=== PATIENT | male | born 1995 | race African-American/Black ===

== ENCOUNTER 2016-09-17 13:28 | Emergency (ER) | payer SELFPAY ==
--- NOTE | 2016-09-17 14:07 | ER Document Report ---
HPI - HPI Patient complains to provider of: Sore throat Onset: Other - Last night Onset/Duration: Gradual Pain Level: 5 Context: 21-year-old male complaining of sore throat that started last night. It hurts to swallow. No fever or chills. No rash. No runny nose or cough. Associated Symptoms: None Exacerbated by: Other - swallowing Relieved by: Denies Similar symptoms previously: Yes Recently seen / treated by doctor: No - ROS ROS below otherwise negative: Yes Systems Reviewed and Negative: Yes All other systems reviewed and negative - DERM Skin Color: Normal Past Medical History - General Information source: Patient - Social History Smoking Status: Current Every Day Smoker Frequency of alcohol use: Occasional Drug Abuse: None Occupation: food service sales representatives Lives with: Family Family History: Reviewed & Not Pertinent - Medical History Medical History: Negative Renal/ Medical History: Denies: Hx Peritoneal Dialysis Surgical Hx: Negative Vertical Provider Document - CONSTITUTIONAL Agree With Documented VS: Yes Exam Limitations: No Limitations - INFECTION CONTROL TRAVEL OUTSIDE OF THE [place] IN LAST 30 DAYS: No - HEENT HEENT: Normocephalic, PERRLA, Pharyngeal Erythema. negative: Pharyngeal Exudate , Tympanic Membrane Red - NECK Neck: Supple, Lymphadenopathy-Left - Anterior, Lymphadenopathy-Right - Anterior - RESPIRATORY Respiratory: Breath Sounds Normal, No Respiratory Distress O2 Sat by Pulse Oximetry: 96 - CARDIOVASCULAR Cardiovascular: Regular Rate, Regular Rhythm - GI/ABDOMEN Gastrointestinal: Abdomen Soft, Abdomen Non-Tender, No Organomegaly - MUSCULOSKELETAL/EXTREMETIES Musculoskeletal/Extremeties: MAEW, FROM - NEURO Level of Consciousness: Awake, Alert, Appropriate - DERM Integumentary: Warm, Dry, No Rash Course - Vital Signs Vital signs: Temp Pulse Resp BP Pulse Ox 97.6 F 66 18 144/74 H 96 09/17/16 13:36 09/17/16 13:36 09/17/16 13:36 09/17/16 13:36 09/17/16 13:36 Discharge - Discharge Clinical Impression: Sore throat Condition: Good Disposition: HOME, SELF-CARE Instructions: Sore Throat ([facility]), Penicillin V K ([facility]), Anti-Inflammatory Medication ([facility]), Acetaminophen Additional Instructions: chloraseptic spray for for throat tylenol and motrin for pain drink plenty of fluids to er if worse Please complete the patient satisfaction survey if you get one, and return it.. If you do not receive a survey, then you can go to the [facility] website, [email or web address] and place your comments about your very good care. Thank you very much. It was a pleasure being your medical provider today. Prescriptions: Ibuprofen [Motrin 800 mg Tablet] 800 mg PO Q8HP PRN #30 tablet PRN Reason: Penicillin V Potassium [Penicillin Vk 500 mg Tablet] 500 mg PO QID #40 tablet Forms: Return to Work
[2016-09-17 15:01] VITALS: BP 140/70
== END 2016-09-17 15:01 | disposition home or self-care (01) ==
LOC: ER 13:28
DX: J02.9 Acute pharyngitis, unspecified (principal); R59.0 Localized enlarged lymph nodes; F17.200 Nicotine dependence, unspecified, uncomplicated
CPT/HCPCS: 99282

== ENCOUNTER 2016-10-17 05:54 | Emergency (ER) | payer SELFPAY ==
[2016-10-17] MEDS ORDERED: ONDANSETRON 4 MG TAB.RAPDIS PO ONE (06:56)
--- NOTE | 2016-10-17 06:56 | ER Document Report ---
ED GI/ - General Mode of Arrival: Ambulatory Information source: Patient TRAVEL OUTSIDE OF THE [place] IN LAST 30 DAYS: No - HPI Patient complains to provider of: Diarrhea, Vomiting. No: Abdominal pain Quality of pain: No pain Associated symptoms: Other - see above - General Chief Complaint: Nausea/Vomiting Stated Complaint: NAUSEA,VOMITING Time Seen by Provider: 10/17/16 06:44 Notes: Patient is a 21 year old male who presents to the ED with complaints of nausea. Patient states he had a frontal headache all day yesterday and last night. Patient also ate taco ramirez for dinner last night. He states he woke up at 0400 , his regular time to go to work and had vomiting x2 and some diarrhea. Patient denies any abdominal pain but states he is still nauseous. Patient also has a cough and some congestion. (MATIAS SHAIKH) - Related Data Allergies/Adverse Reactions: No Known Allergies Allergy (Verified 09/17/16 13:38) Home Medications: Current Home Medications No Home Medications 10/17/16 [History] Past Medical History - General Information source: Patient - Social History Smoking Status: Current Every Day Smoker - minimal Frequency of alcohol use: Occasional Family History: Reviewed & Not Pertinent Patient has suicidal ideation: No Patient has homicidal ideation: No Renal/ Medical History: Denies: Hx Peritoneal Dialysis Review of Systems - Review of Systems Constitutional: No symptoms reported EENT: See HPI, Nose congestion Cardiovascular: No symptoms reported Respiratory: See HPI, Cough Gastrointestinal: See HPI, Diarrhea, Nausea, Vomiting. denies: Abdominal pain Genitourinary: No symptoms reported Male Genitourinary: No symptoms reported Musculoskeletal: No symptoms reported Skin: No symptoms reported Hematologic/Lymphatic: No symptoms reported Neurological/Psychological: No symptoms reported Physical Exam - General General appearance: Appears well, Alert In distress: None - HEENT Head: Normocephalic, Other - middle of scalp along hair line is tender to palpation Eyes: Normal Extraocular movements intact: Yes Pupils: PERRL Sinus: Normal, Maxillary. No: Tenderness - to include to maxially sinus tenderness Pharynx: Erythema Neck: Normal, Other - no posterior cervical muscle tenderness or spasm, can touch chin to chest without difficulty - Respiratory Respiratory status: No respiratory distress Breath sounds: Normal - Cardiovascular Rhythm: Regular Heart sounds: Normal auscultation Murmur: No - Abdominal Inspection: Normal Distension: No distension Bowel sounds: Normal Tenderness: Nontender - Back Back: Normal - Extremities General upper extremity: Normal inspection, Normal ROM General lower extremity: Normal inspection, Normal ROM - Neurological Neuro grossly intact: Yes - Psychological Associated symptoms: Normal affect, Normal mood - Skin Skin Temperature: Warm Skin Moisture: Dry Skin Color: Normal - Vital signs Vitals: Temp Pulse Resp BP Pulse Ox 97.4 F 59 L 16 140/70 H 94 10/17/16 05:58 10/17/16 05:58 10/17/16 05:58 10/17/16 05:58 10/17/16 05:58 Course - Re-evaluation Re-evalutation: 10/17/16 08:50 Patient is feeling some better. He continues to have tenderness to palpate the upper midline forehead. He continues to have some nasal and sinus congestion. ( SARA DÍAZ) - Vital Signs Vital signs: Temp Pulse Resp BP Pulse Ox 97.4 F 59 L 16 140/70 H 94 10/17/16 05:58 10/17/16 05:58 10/17/16 05:58 10/17/16 05:58 10/17/16 05:58 Discharge - Discharge Clinical Impression: Tension headache, Sinus congestion Nausea and vomiting Qualifiers: Vomiting type: unspecified Vomiting Intractability: non-intractable Qualified Code(s): R11.2 - Nausea with vomiting, unspecified Condition: Stable Disposition: HOME, SELF-CARE Additional Instructions: Viral Syndrome The physician has diagnosed a viral infection. Viruses not only cause "colds," but can cause many different symptoms including generalized aching, fever, headache, cough, diarrhea, nausea, vomiting, and fatigue. The treatment, for the most part, is simply relief of symptoms. This means that antibiotics are usually not given. Rest, fluids, pain medications and, occasionally, medication for the specific symptoms that are most bothersome will be prescribed. Use good handwashing to avoid passing the virus to others. Shared toys should be cleaned with disinfectant. Clean the toilets, sinks, and counter surfaces in bathrooms. Launder clothing in hot water. Contact the physician if you develop any new or unusual symptoms such as severe headache, stiff neck, high fever, chest pain, productive cough, or shortness of breath. You should be rechecked if you don't see marked improvement within seven to 10 days. TAKE TYLENOL AND MOTRIN FOR HEADACHE. DRINK PLENTY OF COOL CLEAR LIQUIDS. REST. FOLLOW UP WITH A LOCAL MEDICAL DOCTOR IF NOT IMPROVING. RETURN TO THE EMERGENCY ROOM IF ANY NEW OR WORSENING SYMPTOMS. Forms: Return to Work Scribe Attestation: 10/17/16 07:11 I personally performed the services described in the documentation, reviewed and edited the documentation which was dictated to the scribe in my presence, and it accurately records my words and actions. (SARA DÍAZ) Scribe Documentation - Scribe Written by Win:: win Mark, 10/17/2016, 0702 acting as scribe for :: Alley
[2016-10-17] MEDS ORDERED: DIPHENHYDRAMINE HCL 25 MG CAPSULE PO ONE (06:57)
[2016-10-17] MEDS ORDERED: IBUPROFEN 800 MG TABLET PO ONE (06:57)
[2016-10-17] MEDS ORDERED: PROCHLORPERAZINE MALEATE 10 MG TABLET PO ONE (06:57)
[2016-10-17] MEDS ORDERED: ONDANSETRON ODT 4 MG TAB (6 TAB/DSPK) PO PRN (08:53)
[2016-10-17 09:28] VITALS: BP 125/75
== END 2016-10-17 09:28 | disposition home or self-care (01) ==
LOC: ER 05:54
DX: R11.2 Nausea with vomiting, unspecified (principal); G44.209 Tension-type headache, unspecified, not intractable; R09.81 Nasal congestion; R19.7 Diarrhea, unspecified; R05 Cough; F17.200 Nicotine dependence, unspecified, uncomplicated
CPT/HCPCS: 99283; S0119; S0183

== ENCOUNTER 2016-11-19 06:40 | Emergency (ER) | payer SELFPAY ==
[2016-11-19 06:47] VITALS: BP 148/78
[2016-11-19] MEDS ORDERED: ONDANSETRON 4 MG TAB.RAPDIS PO ONE (07:21)
--- NOTE | 2016-11-19 07:33 | ER Document Report ---
HPI - HPI Patient complains to provider of: vomiting Onset: This morning Onset/Duration: Gradual Quality of pain: No pain Pain Level: Denies Context: Patient presents complaining of nausea and vomiting that started this morning. Patient states he has vomited 2 times. Patient does report recent sick contacts with similar symptoms. Patient denies any diarrhea. Patient denies abdominal pain. Associated Symptoms: Nausea, Vomiting. denies: Chest pain, Nonproductive cough , Productive cough, Fever Exacerbated by: Denies Relieved by: Denies Similar symptoms previously: Yes Recently seen / treated by doctor: No - ROS ROS below otherwise negative: Yes Systems Reviewed and Negative: Yes All other systems reviewed and negative - CONSTITUTIONAL Constitutional: DENIES: Fever, Chills - EENT EENT: DENIES: Sore Throat - RESPIRATORY Respiratory: DENIES: Coughing - GASTROINTESTINAL Gastrointestinal: REPORTS: Nausea, Patient vomiting. DENIES: Abdominal Pain, Diarrhea - URINARY Urinary: DENIES: Dysuria - MUSCULOSKELETAL Musculoskeletal: DENIES: Extremity pain, Back Pain - DERM Skin Color: Normal Skin Problems: None Past Medical History - General Information source: Patient - Social History Smoking Status: Current Every Day Smoker Frequency of alcohol use: None Drug Abuse: None Occupation: food cooking machine operator Family History: Reviewed & Not Pertinent Patient has suicidal ideation: No Patient has homicidal ideation: No - Medical History Medical History: Negative Renal/ Medical History: Denies: Hx Peritoneal Dialysis Surgical Hx: Negative Vertical Provider Document - CONSTITUTIONAL Agree With Documented VS: Yes Exam Limitations: No Limitations General Appearance: WD/WN, No Apparent Distress - INFECTION CONTROL TRAVEL OUTSIDE OF THE [place] IN LAST 30 DAYS: No - HEENT HEENT: Atraumatic, Normal ENT Exam - NECK Neck: Normal Inspection, Supple. negative: Lymphadenopathy-Left, Lymphadenopathy-Right - RESPIRATORY Respiratory: Breath Sounds Normal, No Respiratory Distress, Chest Non-Tender O2 Sat by Pulse Oximetry: 95 - CARDIOVASCULAR Cardiovascular: Regular Rate, Regular Rhythm, No Murmur - GI/ABDOMEN Gastrointestinal: Abdomen Soft, Abdomen Non-Tender, No Organomegaly, Normal Bowel Sounds - BACK Back: Normal Inspection. negative: CVA Tenderness-Right, CVA Tenderness-Left - MUSCULOSKELETAL/EXTREMETIES Musculoskeletal/Extremeties: MAEW, FROM - NEURO Level of Consciousness: Awake, Alert, Appropriate Motor/Sensory: No Motor Deficit - DERM Integumentary: Warm, Dry, No Rash Course - Re-evaluation Re-evalutation: 11/19/16 08:21 Patient able to tolerate oral fluids. Patient states that nausea has improved. Patient continues to deny any abdominal tenderness at this time. 11/19/16 08:22 The patient has been informed that they may have pre-hypertension or hypertension based on a blood pressure reading in the emergency department. I recommend that patient call the primary care provider listed on their discharge instructions or a physician of their choice by this week to arrange follow-up for further evaluation of possible pre-hypertension or hypertension. - Vital Signs Vital signs: Temp Pulse Resp BP Pulse Ox 97.7 F 73 16 148/78 H 95 11/19/16 06:45 11/19/16 06:45 11/19/16 06:45 11/19/16 06:45 11/19/16 06:45 Discharge - Discharge Clinical Impression: Elevated blood pressure reading Nausea & vomiting Qualifiers: Vomiting type: unspecified Vomiting Intractability: non-intractable Qualified Code(s): R11.2 - Nausea with vomiting, unspecified Condition: Stable Disposition: HOME, SELF-CARE Instructions: Antinausea Medication ([facility]), Nausea or Vomiting, Nonspecific ([facility] ) Additional Instructions: Return immediately for any new or worsening symptoms Followup with your primary care provider, call tomorrow to make a followup appointment Prescriptions: Promethazine HCl [Phenergan 25 mg Tablet] 25 mg PO Q6H PRN #10 tablet PRN Reason: Forms: Elevated Blood Pressure, Return to Work Referrals: [facility] [Provider Group] - Follow up as needed
== END 2016-11-19 09:04 | disposition home or self-care (01) ==
LOC: ER 06:40
DX: R03.0 Elevated blood-pressure reading, without diagnosis of hypertension (principal); R11.2 Nausea with vomiting, unspecified; F17.200 Nicotine dependence, unspecified, uncomplicated
CPT/HCPCS: 99283; S0119

== ENCOUNTER 2016-12-13 16:09 | Emergency (ER) | payer BC ==
[2016-12-13] MEDS ORDERED: CEFTRIAXONE INJ 250 MG VIAL IM ONE (17:06)
[2016-12-13] MEDS ORDERED: LIDOCAINE 1% INJ-PF (10 MG/ML) 30 ML SDV INJ ONE (17:06)
[2016-12-13] MEDS ORDERED: AZITHROMYCIN 250 MG TABLET PO ONE (17:06)
--- NOTE | 2016-12-13 17:47 | ER Document Report ---
ED GI/ - General Chief Complaint: Urinary Problem Stated Complaint: URINARY SYMPTOMS Time Seen by Provider: 12/13/16 16:54 Mode of Arrival: Ambulatory Information source: Patient Notes: 21-year-old male presents to ED for complaint of pain and burning with urination. He states the pain and burning started on Friday. He states his girlfriend told him that he she was positive for chlamydia. He denies any penile discharge. He denies any other complaints. TRAVEL OUTSIDE OF THE [place] IN LAST 30 DAYS: No - HPI Patient complains to provider of: Other - Pain and burning with urination Onset: Other - Friday Timing/Duration: Gradual Quality of pain: Burning Severity at maximum: Moderate Severity in ED: Moderate Pain Level: 2 Location: Other - Burning with urination Associated symptoms: Urinary frequency, Urinary urgency, Other - Burning with urination. denies: Penile discharge Exacerbated by: Other Relieved by: Denies - Urination Similar symptoms previously: No Recently seen / treated by doctor: No - Related Data Allergies/Adverse Reactions: No Known Allergies Allergy (Verified 12/13/16 16:24) Past Medical History - General Information source: Patient - Social History Smoking Status: Current Every Day Smoker Cigarette use (# per day): Yes - 3-4 cig a day Chew tobacco use (# tins/day): No Smoking Education Provided: Yes - less than 1 min Frequency of alcohol use: Social Drug Abuse: None Occupation: Maintenance Lives with: Spouse/Significant other Family History: Reviewed & Not Pertinent Patient has suicidal ideation: No Patient has homicidal ideation: No - Past Medical History Cardiac Medical History: Reports: None Pulmonary Medical History: Reports: None EENT Medical History: Reports: None Neurological Medical History: Reports: None Endocrine Medical History: Reports: None Renal/ Medical History: Reports: None Malignancy Medical History: Reports None GI Medical History: Reports: None Musculoskeltal Medical History: Reports None Skin Medical History: Reports None Psychiatric Medical History: Reports: None Traumatic Medical History: Reports: None Infectious Medical History: Reports: None Surgical Hx: Negative - Immunizations Immunizations up to date: Yes Hx Diphtheria, Pertussis, Tetanus Vaccination: Yes Review of Systems - Review of Systems Constitutional: No symptoms reported EENT: No symptoms reported Cardiovascular: No symptoms reported Respiratory: No symptoms reported Gastrointestinal: No symptoms reported Genitourinary: Burning, Frequency Male Genitourinary: No symptoms reported Musculoskeletal: No symptoms reported Skin: No symptoms reported Hematologic/Lymphatic: No symptoms reported Neurological/Psychological: No symptoms reported Physical Exam - Vital signs Vitals: Temp Pulse Resp BP Pulse Ox 98.3 F 96 16 150/94 H 98 12/13/16 16:24 12/13/16 16:24 12/13/16 16:24 12/13/16 16:24 12/13/16 16:24 Interpretation: Normal - General General appearance: Appears well, Alert - HEENT Head: Normocephalic, Atraumatic Eyes: Normal Pupils: PERRL - Respiratory Respiratory status: No respiratory distress Chest status: Nontender Breath sounds: Normal Chest palpation: Normal - Cardiovascular Rhythm: Regular Heart sounds: Normal auscultation Murmur: No - Abdominal Inspection: Normal Distension: No distension Bowel sounds: Normal Tenderness: Nontender Organomegaly: No organomegaly - Back Back: Normal, Nontender - Extremities General upper extremity: Normal inspection, Nontender, Normal color, Normal ROM , Normal temperature General lower extremity: Normal inspection, Nontender, Normal color, Normal ROM , Normal temperature, Normal weight bearing. No: Margret's sign - Neurological Neuro grossly intact: Yes Cognition: Normal Orientation: AAOx4 Irineo Coma Scale Eye Opening: Spontaneous Irineo Coma Scale Verbal: Oriented [place] Coma Scale Motor: Obeys Commands Irineo Coma Scale Total: 15 Speech: Normal Motor strength normal: LUE, RUE, LLE, RLE Sensory: Normal - Psychological Associated symptoms: Normal affect, Normal mood - Skin Skin Temperature: Warm Skin Moisture: Dry Skin Color: Normal Course - Vital Signs Vital signs: Temp Pulse Resp BP Pulse Ox 97.4 F 86 16 140/78 H 90 L 12/13/16 18:28 12/13/16 18:28 12/13/16 18:28 12/13/16 18:28 12/13/16 18:28 Discharge - Discharge Clinical Impression: Concern about STD in male without diagnosis, Urethritis Condition: Stable Disposition: HOME, SELF-CARE Instructions: Family Physicians / Practices Additional Instructions: Urethritis You have urethritis, an infection of the urethra. The usual symptoms are pain on urination and discharge. The infection is often caused by gonorrhea or chlamydia. Treatment is antibiotics. In addition, any sexual contacts should be evaluated by a physician as soon as possible. As this infection can be transmitted sexually, refrain from sexual activity until the infection is confirmed as healed by your physician. If gonorrhea or chlamydia is found on culture, the health department must be notified. Call the doctor at once if you develop difficulty passing your urine, high fever, rash, joint swelling, or other new symptoms. CEPHALOSPORINS: An antibiotic of the cephalosporin class has been prescribed. This type of antibiotic covers a wide variety of infections, including those of the skin, lungs, middle ear, and urinary tract. This antibiotic is somewhat similar to the penicillin family. In rare cases , a person who is allergic to penicillin will also be allergic to this medication. If you have had a severe allergic reaction to penicillin, and have not taken this antibiotic since that time, notify your doctor. Antibiotics which cover many germs ("broad spectrum" antibiotics) are more likely to cause diarrhea or "yeast" infections. Women prone to vaginal yeast problems may suffer an attack after taking this antibiotic. In infants, oral thrush (white spots "stuck" on the cheek) or yeast diaper rash may result. See your doctor if these problems occur. Call the doctor at once if you develop hives, itching, shortness of breath , or lightheadedness. AZITHROMYCIN: Azithromycin (Zithromax) is a broad spectrum antibiotic in the same class as erythromycin. It can treat a variety of bacterial infections, but is most frequently used for respiratory infections. Azithromycin is extremely long-lasting. It accumulates in body tissues and continues to kill bacteria for many days. In order to improve absorption, Azithromycin should be taken at least one hour before or two hours after a meal. It does not have the same strong tendency to upset the stomach as erythromycin and is usually very well tolerated. Patients who have had a rash or other true allergic reactions to erythromycin should not take this medication. Call if you develop gastrointestinal distress, severe diarrhea, rash, hives, itching, or shortness of breath. FOLLOW-UP CARE: If you have been referred to a physician for follow-up care, call the physician s office for an appointment as you were instructed or within the next two days. If you experience worsening or a significant change in your symptoms, notify the physician immediately or return to the Emergency Department at any time for re-evaluation. Forms: Elevated Blood Pressure, Smoking Cessation Education, Return to Work
[2016-12-13 17:50] LABS: AMORPHOUS SEDIMENT,URINE TRACE /HPF; APPEARANCE,URINE CLOUDY; BILIRUBIN,URINE NEGATIVE (NEGATIVE); GLUCOSE, URINE NEGATIVE (NEGATIVE); KETONES,URINE NEGATIVE (NEGATIVE); LEUKOCYTE ESTERASE,URINE NEGATIVE (NEGATIVE); NITRITE,URINE NEGATIVE (NEGATIVE); PROTEIN,URINE NEGATIVE (NEGATIVE); URINE SPECIFIC GRAVITY 1.021; UROBILINOGEN,URINE NEGATIVE mg/dL (<2.0)
[2016-12-13 18:29] VITALS: BP 140/78
[2016-12-13 19:15] LABS: CHLAM PCR NOT DETECTED (NOT DETECT)
== END 2016-12-13 18:25 | disposition home or self-care (01) ==
LOC: ER 16:09
DX: N34.2 Other urethritis (principal); Z20.2 Contact with and (suspected) exposure to infections with a predominantly sexual mode of transmission; R30.0 Dysuria; R35.0 Frequency of micturition; F17.210 Nicotine dependence, cigarettes, uncomplicated
CPT/HCPCS: 99283; 96372; 81001; 87491; 87591; J3490; J0696

== ENCOUNTER 2016-12-30 05:30 | Emergency (ER) | payer BC ==
[2016-12-30 05:36] VITALS: BP 136/77
[2016-12-30] MEDS ORDERED: IBUPROFEN 800 MG TABLET PO ONE (05:48)
[2016-12-30] MEDS ORDERED: PSEUDOEPHEDRINE HCL 30 MG TABLET PO ONE (05:48)
--- NOTE | 2016-12-30 05:50 | ER Document Report ---
HPI - HPI Patient complains to provider of: sore throat Onset: Yesterday Onset/Duration: Gradual Quality of pain: Achy Pain Level: 4 Context: Patient presents complaining of sore throat with sinus congestion started yesterday. Patient denies any fever. Patient does report recent sick household contacts. Patient reports only mild cough. Associated Symptoms: Rhinnorhea, Sore throat. denies: Earache, Fever, Headache Exacerbated by: Denies Relieved by: Denies Similar symptoms previously: No Recently seen / treated by doctor: No - ROS ROS below otherwise negative: Yes Systems Reviewed and Negative: Yes All other systems reviewed and negative - CONSTITUTIONAL Constitutional: DENIES: Fever, Chills - EENT EENT: REPORTS: Sore Throat, Nasal Drainage-Clear, Congestion - RESPIRATORY Respiratory: REPORTS: Coughing - GASTROINTESTINAL Gastrointestinal: DENIES: Nausea, Patient vomiting, Diarrhea - MUSCULOSKELETAL Musculoskeletal: DENIES: Neck Pain - DERM Skin Color: Normal Skin Problems: None Past Medical History - General Information source: Patient - Social History Smoking Status: Current Every Day Smoker Frequency of alcohol use: None Drug Abuse: None Occupation: banquet food server Lives with: Family Family History: Reviewed & Not Pertinent Patient has suicidal ideation: No Patient has homicidal ideation: No - Medical History Medical History: Negative Renal/ Medical History: Denies: Hx Peritoneal Dialysis Surgical Hx: Negative - Immunizations Immunizations up to date: Yes Hx Diphtheria, Pertussis, Tetanus Vaccination: Yes Vertical Provider Document - CONSTITUTIONAL Agree With Documented VS: Yes Exam Limitations: No Limitations General Appearance: WD/WN, No Apparent Distress - INFECTION CONTROL TRAVEL OUTSIDE OF THE [place] IN LAST 30 DAYS: No - HEENT HEENT: Atraumatic, Normocephalic, Pharyngeal Tenderness. negative: Pharyngeal Exudate Notes: clear rhinorrhea, +nasal congestion - NECK Neck: Lymphadenopathy-Left, Lymphadenopathy-Right - RESPIRATORY Respiratory: Breath Sounds Normal, No Respiratory Distress, Chest Non-Tender O2 Sat by Pulse Oximetry: 98 - CARDIOVASCULAR Cardiovascular: Regular Rate, Regular Rhythm, No Murmur - BACK Back: Normal Inspection - MUSCULOSKELETAL/EXTREMETIES Musculoskeletal/Extremeties: CODY NOVA - NEURO Level of Consciousness: Awake, Alert, Appropriate Motor/Sensory: No Motor Deficit - DERM Integumentary: Warm, Dry, No Rash Course - Re-evaluation Re-evalutation: 12/30/16 05:51 The patient has been informed that they may have pre-hypertension or hypertension based on a blood pressure reading in the emergency department. I recommend that patient call the primary care provider listed on their discharge instructions or a physician of their choice by this week to arrange follow-up for further evaluation of possible pre-hypertension or hypertension. - Vital Signs Vital signs: Temp Pulse Resp BP Pulse Ox 97.2 F 67 16 136/77 H 98 12/30/16 05:32 12/30/16 05:32 12/30/16 05:32 12/30/16 05:32 12/30/16 05:32 - Laboratory Laboratory results interpreted by me: 12/30/16 06:17 Labs- Entire Visit 12/30/16 05:45 Group A Strep Rapid NEGATIVE Discharge - Discharge Clinical Impression: Elevated blood pressure reading, Sore throat, Sinus congestion Condition: Stable Disposition: HOME, SELF-CARE Instructions: Sore Throat ([facility]), Upper Respiratory Illness ([facility]) Additional Instructions: Return immediately for any new or worsening symptoms Followup with your primary care provider, call tomorrow to make a followup appointment Throat culture is pending, we will call if you need any different treatment Prescriptions: Naproxen [Naprosyn 250 Nmg Tablet] 1 tab PO BID #14 tablet Forms: Return to Work, Elevated Blood Pressure Referrals: [facility] [Provider Group] - Follow up as needed
== END 2016-12-30 06:24 | disposition home or self-care (01) ==
LOC: ER 05:30
DX: R03.0 Elevated blood-pressure reading, without diagnosis of hypertension (principal); J02.9 Acute pharyngitis, unspecified; R09.81 Nasal congestion; F17.200 Nicotine dependence, unspecified, uncomplicated
CPT/HCPCS: 87070; 87880; 99283

== ENCOUNTER 2017-01-12 19:08 | Emergency (ER) | payer BC ==
[2017-01-12] MEDS ORDERED: TETRACAINE HCL 0.5% OPH SOLN 2 ML OU ONE (20:14)
--- NOTE | 2017-01-12 20:21 | ER Document Report ---
ED Eye Complaint - General Chief Complaint: Eye irritation/ redness Stated Complaint: EYE PAIN Time Seen by Provider: 01/12/17 20:14 TRAVEL OUTSIDE OF THE [place] IN LAST 30 DAYS: No - HPI Patient complains to provider of: eye redness Onset: Other - 2 days ago, started in his left eye and spread to his right. Eye location: Bilateral Injury: No Quality of pain: No pain Severity: None Exposure: No: Alkaline chemical, Acidic chemical, Unknown chemical, Direct trauma, Projectile, Broken glass, Conjunctivitis, Welding arc, Tanning marc, Other Contact lenses worn: No Associated symptoms: Itching, Redness, Other - yellow discharge. denies: None, Burning, Pain, Photophobia, Matting, Eyelid swelling, Orbital swelling, Foreign body sensation, Blurred vision, Double vision, Decreased vision, Loss of vision - Related Data Allergies/Adverse Reactions: No Known Allergies Allergy (Verified 12/13/16 16:24) Past Medical History - Social History Smoking Status: Smoker,Current Status Unk Family History: Reviewed & Not Pertinent Patient has suicidal ideation: No Patient has homicidal ideation: No Renal/ Medical History: Denies: Hx Peritoneal Dialysis - Immunizations Immunizations up to date: Yes Hx Diphtheria, Pertussis, Tetanus Vaccination: Yes Review of Systems - Review of Systems Constitutional: No symptoms reported EENT: See HPI -: Yes All other systems reviewed and negative Physical Exam - Vital signs Vitals: Temp Pulse Resp BP Pulse Ox 99.4 F 75 16 144/76 H 95 01/12/17 19:29 01/12/17 19:29 01/12/17 19:29 01/12/17 19:29 01/12/17 19:29 - HEENT Conjunctiva: Injected Cornea: Normal. No: Corneal abrasion, Corneal ulcer, Flourescein stain uptake Extraocular movements intact: Yes Eyelashes: Normal Pupils: PERRL Course - Re-evaluation Re-evalutation: 01/12/17 20:44 Patient presents with symptoms most consistent with a bacterial conjunctivitis. Bilateral eye involvement that originated on the left side and then spread to the right with purulent drainage. Patient is otherwise very well in appearance , no acute distress, vitals within normal limits. They will be discharged with a prescription for Polytrim eyedrops. Patient isin agreement with this plan and verbalized indications to return to the emergency department. - Vital Signs Vital signs: Temp Pulse Resp BP Pulse Ox 99.4 F 75 16 144/76 H 95 01/12/17 19:29 01/12/17 19:29 01/12/17 19:29 01/12/17 19:29 01/12/17 19:29 Discharge - Discharge Clinical Impression: Conjunctivitis Qualifiers: Conjunctivitis type: acute Acute conjunctivitis type: bacterial Laterality: bilateral Qualified Code(s): H10.33 - Unspecified acute conjunctivitis, bilateral Condition: Good Disposition: HOME, SELF-CARE Instructions: Antibiotic Therapy ([facility]), Conjunctivitis ([facility]), Eyedrop Use ([facility]) Additional Instructions: Ophthalmic: Instill 1 drop in affected eye(s) every 3 hours (maximum: 6 doses per day) for 7-10 days Forms: Return to Work Referrals: ROCIO MCKEON MD [ACTIVE STAFF] - Follow up as needed
[2017-01-12] MEDS ORDERED: POLYMYXIN B SULFATE/TMP OPH SOLN (10 ML/ER DISP) OU ONE (20:47)
[2017-01-12 21:10] VITALS: BP 140/81
== END 2017-01-12 21:07 | disposition home or self-care (01) ==
LOC: ER 19:08
DX: H10.33 Unspecified acute conjunctivitis, bilateral (principal)
CPT/HCPCS: 99282; J3490

== ENCOUNTER 2017-01-14 20:42 | Emergency (ER) | payer BC ==
[2017-01-14 20:58] VITALS: BP 146/76
[2017-01-14] MEDS ORDERED: ERYTHROMYCIN 0.5% OPH OINTMENT 3.5 GM (ER DISP) OP PRN (21:33)
--- NOTE | 2017-01-14 21:38 | ER Document Report ---
HPI - HPI Patient complains to provider of: Note for work Onset: Other - 4 days Onset/Duration: Better Quality of pain: No pain Pain Level: 0 Context: Patient states that he was recently treated here for pinkeye. Patient states that his eye drainage symptoms have started to improve although he has still had some eye redness bilaterally. Patient states that his eye redness is improving as well although his employer is not comfortable with him working. Patient states that his employer is requiring him to obtain a note for work. Patient does not wear contact lenses or glasses. Patient denies any eye discomfort or change in vision. Patient states multiple household members had pinkeye as well and his symptoms are very much like the rest of the household. Associated Symptoms: Other - Eye redness Exacerbated by: Denies Relieved by: Denies Similar symptoms previously: Yes Recently seen / treated by doctor: Yes - ROS ROS below otherwise negative: Yes Systems Reviewed and Negative: Yes All other systems reviewed and negative - EENT EENT: REPORTS: Eye problems - DERM Skin Problems: None Past Medical History - General Information source: Patient - Social History Smoking Status: Current Every Day Smoker Smoking Education Provided: No Frequency of alcohol use: Occasional Drug Abuse: None Occupation: [employer] Lives with: Family Family History: Reviewed & Not Pertinent - Medical History Medical History: Negative Renal/ Medical History: Denies: Hx Peritoneal Dialysis Surgical Hx: Negative - Immunizations Immunizations up to date: Yes Hx Diphtheria, Pertussis, Tetanus Vaccination: Yes Vertical Provider Document - CONSTITUTIONAL Agree With Documented VS: Yes Exam Limitations: No Limitations General Appearance: WD/WN, No Apparent Distress - INFECTION CONTROL TRAVEL OUTSIDE OF THE [place] IN LAST 30 DAYS: No - HEENT HEENT: Atraumatic, Normocephalic Notes: Conjunctiva and bilateral sclera injected, minimal mucoid drainage noted to eyelashes of left eye. Cobblestoning noted to the conjunctiva. extraocular movements intact, PERRL. - NECK Neck: Normal Inspection - RESPIRATORY Respiratory: No Respiratory Distress O2 Sat by Pulse Oximetry: 97 - MUSCULOSKELETAL/EXTREMETIES Musculoskeletal/Extremeties: MAEW - NEURO Level of Consciousness: Awake, Alert, Appropriate Motor/Sensory: No Motor Deficit - DERM Integumentary: Warm, Dry, No Rash Course - Re-evaluation Re-evalutation: 01/14/17 21:35 Patient continues with very injected sclera bilaterally. Discussed with patient the concern that he may be having a reaction to the antibiotic that he was prescribed. Patient also acknowledges that he has very bad allergies. Patient will be given a prescription for an allergy eyedrop in addition to a different antibiotic. Patient will be encouraged to follow-up with ophthalmology for further evaluation. Patient is insistent that his conjunctivitis is improving although his employer requests reevaluation due to the continued erythema. - Vital Signs Vital signs: Temp Pulse Resp BP Pulse Ox 98.8 F 71 16 146/76 H 97 01/14/17 20:55 01/14/17 20:55 01/14/17 20:55 01/14/17 20:55 01/14/17 20:55 Discharge - Discharge Clinical Impression: Elevated blood pressure reading Conjunctivitis Qualifiers: Conjunctivitis type: unspecified Laterality: bilateral Qualified Code(s): H10.9 - Unspecified conjunctivitis Condition: Stable Disposition: HOME, SELF-CARE Instructions: Antibiotic Therapy ([facility]), Conjunctivitis, Allergic, Conjunctivitis ([facility]) Additional Instructions: Return immediately for any new or worsening symptoms Followup with ophthalmology for a recheck, call their office tomorrow for an appointment Instill a 1 inch ribbon of the erythromycin ointment to bilateral eyes 4 times a day for 5 days. Prescriptions: Olopatadine HCl [Pataday] 1 drop OP DAILY #2.5 ml Forms: Elevated Blood Pressure, Return to Work Referrals: [facility] [Provider Group] - Follow up tomorrow
== END 2017-01-14 21:52 | disposition home or self-care (01) ==
LOC: ER 20:42
DX: R03.0 Elevated blood-pressure reading, without diagnosis of hypertension (principal); H10.9 Unspecified conjunctivitis; F17.200 Nicotine dependence, unspecified, uncomplicated
CPT/HCPCS: 99282